=== PATIENT | female | born 1990 | race Asian ===

== ENCOUNTER 2023-06-10 22:37 | Emergency (ER) | payer MEDICAID ==
[~2023-06-10] VITALS: Ht 152.4 cm; Wt 60.0 kg
[2023-06-11] MEDS ORDERED: LIDOcaine 1% W/epiNEPHrine 1:200,000 10ml vial IJ ONE (00:55)
[2023-06-11] MEDS ORDERED: LIDOcaine 1% W/epiNEPHrine 1:100,000 20ml vial IJ ONE (01:00)
[2023-06-11] MEDS: TETanus/Pertussis (Acell)/Diphther VAC/PF (Tdap-Adult) 0.5ml syringe IMVAC ONE (01:40)
[2023-06-11] MEDS: rabies vaccine (PCEC)/PF 2.5 unit kit IMVAC ONE (01:53)
[2023-06-11] MEDS: rabies immune globulin/PF 150 unit/ml inj IMVAC STA (01:54)
[2023-06-11] MEDS ORDERED: AMOX-117 PO (01:56)
[2023-06-11 02:25] VITALS: BP 118/78; PULSE 84; RESP 16; TEMP 98; O2SAT 99
== END 2023-06-11 02:26 | disposition home or self-care (01) ==
LOC: ER 22:38
DX: S71.112A Laceration without foreign body, left thigh, initial encounter (principal); Z79.899 Other long term (current) drug therapy; W54.0XXA Bitten by dog, initial encounter; Y93.89 Activity, other specified; Y92.89 Other specified places as the place of occurrence of the external cause; Y99.8 Other external cause status; Z20.3 Contact with and (suspected) exposure to rabies
CPT/HCPCS: 90376; 90471; 90472; 90675; 90715; 96372; 99284

== ENCOUNTER 2023-06-14 10:14 | Emergency (ER) | payer MEDICAID ==
[~2023-06-14] VITALS: Ht 162.6 cm; Wt 58.3 kg
[~2023-06-14 10:14] MED LIST: AMOX-117 PO
[2023-06-14 10:50] VITALS: BP 106/53; PULSE 55; RESP 18; O2SAT 98
[2023-06-14] MEDS: rabies vaccine (PCEC)/PF 2.5 unit kit IMVAC ONE (12:57)
[2023-06-14 13:24] VITALS: TEMP 97.8
== END 2023-06-14 13:26 | disposition home or self-care (01) ==
LOC: ER 10:15
DX: Z23 Encounter for immunization (principal); T14.8XXD Other injury of unspecified body region, subsequent encounter; W54.0XXD Bitten by dog, subsequent encounter
CPT/HCPCS: 90471; 90675; 99281

== ENCOUNTER 2023-06-17 10:35 | Emergency (ER) | payer MEDICAID ==
[~2023-06-17] VITALS: Ht 152.4 cm; Wt 60.6 kg
[2023-06-17 10:46] VITALS: BP 107/65; PULSE 69; RESP 16; TEMP 98; O2SAT 99
[2023-06-17] MEDS: rabies vaccine (PCEC)/PF 2.5 unit kit IMVAC ONE (10:57)
== END 2023-06-17 11:08 | disposition home or self-care (01) ==
LOC: ER 10:36
DX: Z23 Encounter for immunization (principal)
CPT/HCPCS: 90471; 90675; 99281

== ENCOUNTER 2023-06-24 10:45 | Emergency (ER) | payer MEDICAID ==
[~2023-06-24] VITALS: Ht 152.4 cm; Wt 58.0 kg
[2023-06-24 10:46] VITALS: BP 111/64; PULSE 73; RESP 16; TEMP 98; O2SAT 98
[2023-06-24] MEDS: rabies vaccine (PCEC)/PF 2.5 unit kit IMVAC ONE (11:37)
== END 2023-06-24 11:41 | disposition home or self-care (01) ==
LOC: ER 10:46
DX: Z23 Encounter for immunization (principal); S81.859D Open bite, unspecified lower leg, subsequent encounter; W54.0XXD Bitten by dog, subsequent encounter
CPT/HCPCS: 90471; 90675; 99281